=== PATIENT | male | born 1970 | race Caucasian/White ===

== ENCOUNTER 2023-02-18 15:55 | Emergency (ER) | payer OTHER, MEDICAID ==
[2023-02-18] MEDS ORDERED: TETANUS, DIPHTHERIA, PERTUSSIS VAC/PF 0.5ML (>10YR OLD) IM ONE (17:15)
[2023-02-18] MEDS ORDERED: BACITRACIN ZINC OINT UDPKT TOP ONE (17:15)
[2023-02-18] MEDS ORDERED: LIDOCAINE HCL/PF 1% 10 MG/ML 5ML VIAL INFIL ONE (17:15)
[2023-02-18] MEDS ORDERED: KETOROLAC 30MG/ML VIAL IM ONE (17:45)
[2023-02-18 17:55] VITALS: BP 140/100
[2023-02-18] MEDS: LIDOCAINE 5% PATCH TOP SCH ×2 (17:55→17:57)
[2023-02-18] MEDS ORDERED: NAPR-681 MT (18:03)
[2023-02-18] MEDS ORDERED: LIDO700A15 TP (18:03)
[2023-02-18 18:12] VITALS: PULSE 88; RESP 16; TEMP 98.1
== END 2023-02-18 18:15 | disposition home or self-care (01) ==
LOC: ER 15:55
DX: S01.01XA Laceration without foreign body of scalp, initial encounter (principal); Y04.0XXA Assault by unarmed brawl or fight, initial encounter; Y93.89 Activity, other specified; Y92.89 Other specified places as the place of occurrence of the external cause; Y99.8 Other external cause status
CPT/HCPCS: 99284; 90715; 12002; 90471; 96372; J1885; J3490